=== PATIENT | male | born 1965 | race Caucasian/White ===

== ENCOUNTER 2023-04-16 12:54 | Emergency (ER) | payer OTHER, SELFPAY ==
[2023-04-16] VITALS (23 sets, daily range): BP systolic 95–133; BP diastolic 58–78; PULSE 64–82; RESP 11–18; TEMP 36.4; O2SAT 98–100; BMI 36.6
--- NOTE | 2023-04-16 13:23 | US_ITS ---
The [address] [address] Patient Name: MARYBETH PIMENTEL MRN: [id number] date: 1965 Sex: M Assigned Patient Location: ED.MAIN Current Patient Location: ER Accession/Order Number: [id number] Exam Date: 04/16/2023 13:25 Report Date: 04/16/2023 14:32 At the request of: HANS DE OLIVEIRA Procedure: US abdomen limited EXAMINATION: US abdomen limited HISTORY: ascites COMPARISON: No relevant comparison available. TECHNIQUE: Transabdominal evaluation of the right upper quadrant. FINDINGS: Large amount of free fluid within all 4 quadrants of the abdomen, the deepest is right upper quadrant, 14.7 cm. US/US abdomen limited IMPRESSION: 1. Marked abdominal ascites. Electronically authenticated by: RAJI IRWIN Date: 04/16/2023 14:32
[2023-04-16 13:24] LABS: Basophils Percent Auto 0.3 % (0.2-2.0); Eosinophils Absolute Auto 0.2 10^3/uL (0.0-0.7); Eosinophils Percent Auto 1.8 % (0.9-7.0); Hematocrit 36.1 % (42.0-54.0); Hemoglobin 11.6 g/dL (14.0-18.0); Immature Granulocytes Abs Auto 0.01 10^3/uL (0.00-0.03); Immature Granulocytes Pct Auto 0.1 % (0.0-0.5); Lymphocytes Absolute Auto 2.4 10^3/uL (1.2-3.8); Lymphocytes Percent Auto 27.2 % (20.5-60.0); Mean Corpuscular HGB Conc 32.1 g/dL (29.9-35.2); Mean Corpuscular Hemoglobin 32.5 pg (25.9-34.0); Mean Corpuscular Volume 101.1 fL (80.0-94.0); Mean Platelet Volume 9.8 fL (9.5-13.5); Monocytes Absolute Auto 0.7 10^3/uL (0.3-0.8); Monocytes Percent Auto 7.8 % (1.7-12.0); Neutrophils Absolute Auto 5.5 10^3/uL (1.4-6.5); Neutrophils Percent Auto 62.8 % (43.0-75.0); Platelet Count 246 10^3/uL (150-450); Red Blood Count 3.57 10^6/uL (4.70-6.10); Red Cell Distribution Width 14.6 % (11.0-15.0); White Blood Count 8.8 10^3/uL (4.0-11.0)
[2023-04-16 13:38] LABS: INR 1.01; Prothrombin Time 10.7 sec (9.0-11.6)
[2023-04-16 13:40] LABS: Alanine Aminotransferase 24 U/L (16-63); Albumin Globulin Ratio 0.8; Albumin Level 2.8 g/dL (3.4-5.0); Alkaline Phosphatase 138 U/L (46-116); Anion Gap 13.2; Aspartate Amino Transferase 44 U/L (15-37); BUN Creatinine Ratio 15.9; Bilirubin Total 0.5 mg/dL (0.2-1.0); Calcium 9.1 mg/dL (8.5-10.1); Carbon Dioxide 26.1 mmol/L (21.0-32.0); Chloride 106 mmol/L (98-107); Estimated GFR (African America 40 (>=60); Estimated GFR (Non-African Ame 33 (>=60); Globulin 3.3 g/dL; Glucose 70 mg/dL (74-106); Lactate/Lactic Acid 2.1 mmol/L (0.4-2.0); Potassium 4.3 mmol/L (3.5-5.1); Sodium 141 mmol/L (136-145); Total Protein 6.1 g/dL (6.4-8.2); Troponin I High Sensitivity 5.4 pg/mL (4.0-76.1)
--- NOTE | 2023-04-16 13:51 | ECG_ITS ---
The [facility] Test Date: 2023-04-16 Pat Name: MARYBETH PIMENTEL Department: Room: - Gender: Male Dra[employer]ating [employer]ating: : 1965 Requested By: Order Number: [id number] Reading MD: FLOR HITCHCOCK Measurements Intervals [place] Rate: 68 P: 7 W[place]: 164 QRS: 30 QRSD: 90 T: 31 QT: 376 QTc: 393 Interpretive Statements 1100 Sinus rhythm with PVC 8100 Low QRS voltage 9150 abnormal ECG No previous ECG available for comparison Electronically Signed On 04-18-2023 10:50:42 EST by FLOR HITCHCOCK
--- NOTE | 2023-04-16 14:33 | ED.GENADUL1 ---
Documented by User: Kat Leeanne 04/16/23 17:24 HPI - General Adult General Chief complaint: Abdominal Pain Stated complaint: ABDOMINAL PAIN Time Seen by Provider: 04/16/23 13:03 Source: patient Mode of arrival: walk-in Limitations: no limitations History of Present Illness HPI narrative: 57-year-old male presents to emergency room with a chief complaint of abdominal distention. Patient states he has a history of alcoholic cirrhosis with paracentesis. He was set up to have paracentesis performed two days ago and decided to sign out against medical advice. Patient presents here today looking have paracentesis performed. He states his normal physician is out of town. He sees a physician in [place]. He denies any pain. States he is a 20 pound weight gain. Normally pt ordered to be drained when he is 10 pounds overweight. Related Data Allergies Allergy/AdvReac Type Severity Reaction Status Date / Time No Known Drug Allergies Allergy Verified 04/16/23 16:23 Review of Systems ROS Narrative All Systems are negative except as noted/marked.All systems reviewed and otherwise negative PFSH PFSH Medical History (Updated 04/16/23 @ 16:23 by Mel Randall) Neuropathy ?G62.9 - Polyneuropathy, unspecified (ICD-10) HTN (hypertension) ?I10 - Essential (primary) hypertension (ICD-10) Cirrhosis ?K74.60 - Unspecified cirrhosis of liver (ICD-10) Surgical History (Updated 04/16/23 @ 16:23 by Mel Randall) H/O cataract removal with insertion of prosthetic lens ?Z98.49 - Cataract extraction status, unspecified eye (ICD-10) ?Z96.1 - Presence of intraocular lens (ICD-10) FHx: bariatric surgery ?Z84.89 - Family history of other specified conditions (ICD-10) Social History Smoking status: Current every day smoker Exam Narrative Exam Narrative: Nurses note and vital signs reviewed and patient is not hypoxic. General: The patient appears well and in no apparent distress. Patient is resting comfortably on cart. Skin: Warm, dry, no pallor noted. There is no rash noted. Head: Normocephalic, atraumatic Eye: Normal conjunctiva, no drainage, EOMI. PERRL Ears, Nose, Mouth, and Throat: oral mucosa is moist. Nares patent. Mouth without vesicles. Ear canals patent. Tm's without Erythema Cardiovascular: Regular Rate and Rhythm Respiratory: Patient is in no distress, no accessory muscle use, lungs are clear to auscultation, no wheezing, rales or rhonchi Back: non-tender, no CVA tenderness bilaterally to percussion. GI: Abdominal distention, no tenderness to palpation, no masses appreciated. No rebound, guarding, or rigidity noted. Neurological: A&O x4, normal speech Psychiatric: Cooperative Constitutional Vital Signs, click to edit/add: Last Vital Signs Temp 97.6 F 04/16/23 13:01 Pulse 64 04/16/23 16:37 Resp 18 04/16/23 16:37 BP 95/58 04/16/23 16:37 Pulse Ox 100 04/16/23 16:40 O2 Del Method Room Air 04/16/23 14:35 Course Vital Signs Vital signs: Vital Signs Temperature 97.6 F 04/16/23 13:01 Pulse Rate 82 04/16/23 13:01 Respiratory Rate 18 04/16/23 13:01 Blood Pressure 133/75 04/16/23 13:01 Pulse Oximetry 100 04/16/23 13:01 Oxygen Delivery Method Room Air 04/16/23 13:01 Temperature 97.6 F 04/16/23 13:01 Pulse Rate 64 04/16/23 16:37 Respiratory Rate 18 04/16/23 16:37 Blood Pressure 95/58 04/16/23 16:37 Pulse Oximetry 100 04/16/23 16:40 Oxygen Delivery Method Room Air 04/16/23 14:35 Medical Decision Making MDM Narrative Medical decision making narrative: 1500 Dr. Obregon note. I spoke to the patient several times, spoke to radiology staff and ultrasound staff. I also spoke to Dr. Erik Mckeon, Emergency Room physician to take care of this patient on Wednesday. I was involved in this patient's care on Wednesday as well, I was assisting Dr. Mckeon on potentially transferring this patient from [facility] to [place], helping with admission, helping perform paracentesis before holiday. I spoke to Dr. Jovan Roca radiologist twice about this patient as well on Wednesday. Patient left [facility] AGAINST MEDICAL ADVICE when he is reccommended to be admitted to the hospital for NILESH, hyperkalemia, and paracentesis. Patient came in to the [facility] today wanting a paracentesis. Patient was told left [facility] on Wednesday that somebody from [place] to call him Wednesday evening or morning. Emesis was not obtained until yesterday morning. The phone number that was provided was called by Cuca from radiology staff and it was not the correct number. Patient never received a phone call. Patient then came to [place] [facility] wanting to have a paracentesis. After multiple phone calls, multiple discussions with radiology staff, and Kat AMES, Dr. Mckeon, and the patient, we are able to repeat labwork can perform paracentesis today. Patient is aware that he should not a left the hospital AGAINST MEDICAL ADVICE on Wednesday. Patient is aware that we have Spent a considerable 20-30 min conservative amount of time trying to help him today with multiple different avenues at the hospital. Dr Obregon has spoken to Courtney RN From Dr. Orozco office at [facility] as well. She is aware of patient's visit to [place] [facility] today. She stated last time patient had a paracentesis they did a cell count and differential. We have a office number and fax number with the results can be sent to for performing paracentesis today. Office number is [phone] Patient return from radiology department approximately 11 L fluid was removed from his abdomen. Patient feels well at this time. Patient was given IV albumin here in the emergency room. Patient has had paracentesis 6-7 times per his history. Patient will follow-up with his physician dr Orozco In [place]. patient's vital signs are stable here in emergency room. He does feel much better post drainage of the fluid. Patient stable to be discharged home. Patient had an elevated potassium at [facility] several days ago potassium was normal here in the emergency room. he is stable be discharged home. I, Dr Obregon, have reviewed the above progress note and course of action in the ER; agree with the above. I have personally seen and evaluated this patient, gone over history and physical, and discussed disposition and treatment plan with the patient. Critical care time 45 minutes exclusive from separate billable procedures that were performed. The following was considered in the determination of critical care but not limited to the level of medical decision making, intensive cardiac and/or respiratory monitoring, frequent vital sign monitoring, evaluation of laboratory studies, evaluation of radiographic studies, oxygen monitoring, and constant monitoring and speaking to family at bedside Medical Records Medical records reviewed: Yes I reviewed the patient's medical records Lab Data Lab results reviewed: Yes I reviewed the patient's lab results Labs: Lab Results 04/16/23 04/16/23 Range/Units 13:12 15:05 WBC 8.8 (4.0-11.0) 10^3/uL RBC 3.57 L (4.70-6.10) 10^6/uL Hgb 11.6 L (14.0-18.0) g/dL Hct 36.1 L (42.0-54.0) % MCV 101.1 H (80.0-94.0) fL MCH 32.5 (25.9-34.0) pg MCHC 32.1 (29.9-35.2) g/dL RDW 14.6 (11.0-15.0) % Plt Count 246 (150-450) 10^3/uL MPV 9.8 (9.5-13.5) fL Neut % (Auto) 62.8 (43.0-75.0) % Lymph % (Auto) 27.2 (20.5-60.0) % Will % (Auto) 7.8 (1.7-12.0) % Eos % (Auto) 1.8 (0.9-7.0) % Baso % (Auto) 0.3 (0.2-2.0) % Neut # (Auto) 5.5 (1.4-6.5) 10^3/uL Lymph # (Auto) 2.4 (1.2-3.8) 10^3/uL Will # (Auto) 0.7 (0.3-0.8) 10^3/uL Eos # (Auto) 0.2 (0.0-0.7) 10^3/uL Baso # (Auto) 0.0 (0.0-0.1) 10^3/uL Abs Immat Gran (auto) 0.01 (0.00-0.03) 10^3/uL Imm/Tot Granulo (auto) 0.1 (0.0-0.5) % PT 10.7 (9.0-11.6) sec INR 1.01 APTT 26.0 (22.3-36.2) sec Sodium 141 (136-145) mmol/L Potassium 4.3 (3.5-5.1) mmol/L Chloride 106 (98-107) mmol/L Carbon Dioxide 26.1 (21.0-32.0) mmol/L Anion Gap 13.2 BUN 33.0 H (7.0-18.0) mg/dL Creatinine 2.07 H (0.70-1.30) mg/dL Est GFR ( Amer) 40 L (>=60) Est GFR (Non-Af Amer) 33 L (>=60) BUN/Creatinine Ratio 15.9 Glucose 70 L (74-106) mg/dL Lactate 2.1 H (0.4-2.0) mmol/L Calcium 9.1 (8.5-10.1) mg/dL Total Bilirubin 0.5 (0.2-1.0) mg/dL AST 44 H (15-37) U/L ALT 24 (16-63) U/L Alkaline Phosphatase 138 H (46-116) U/L Troponin I High Sens 5.4 (4.0-76.1) pg/mL Total Protein 6.1 L (6.4-8.2) g/dL Albumin 2.8 L (3.4-5.0) g/dL Globulin 3.3 g/dL Albumin/Globulin Ratio 0.8 Lipase 85.0 H (16.0-77.0) U/L Fluid Color Yellow Fluid Clarity Clear Fluid WBC 425 cubic mm Fluid RBC 380 cubic mm Fluid Neutrophils 21 % Fluid Lymphocytes 68 % Fluid Monocytes 11 % Imaging Data us: Radiologist's impression: [place] [address] Ultrasound Report Signed Patient: MARYBETH PIMENTEL MR#: [id number] : 1965 Acct:[id number] Age/Sex: 57 / M ADM Date: 04/16/23 Loc: ER Attending Dr: Ordering Physician: Kat De Oliveira Date of Service: 04/16/23 Procedure(s): US paracentesis abd w/image Accession Number(s): [id number] cc: Kat De Oliveira; Physician,Non-Staff M.D.~ The [address] [address] Patient Name: MARYBETH PIMENTEL MRN: [id number] date: 1965 Sex: M Assigned Patient Location: ED.MAIN Current Patient Location: ER Accession/Order Number: [id number] Exam Date: 04/16/2023 15:00 Report Date: 04/16/2023 16:14 At the request of: KAT DE OLIVEIRA Procedure: US paracentesis abd w/image EXAMINATION: US paracentesis abd w/image HISTORY: therapeutic drain COMPARISON: No relevant comparison available. DESCRIPTION: Informed consent was obtained. The patient was prepped and draped in standard sterile fashion. Ultrasound-guided paracentesis was performed in the usual sterile manner using 1% Xylocaine. FINDINGS: SITE: Left lower quadrant NEEDLE: Paracentesis 8 Fr. catheter over 18 gauge needle MEDICATION: 1% buffered Xylocaine for local anesthesia FLUID DESCRIPTION: Lucent, yellowish fluid FLUID VOLUME: 11 L COMPLICATIONS: None LABORATORY: Pending OTHER: Negative. US/US paracentesis abd w/image IMPRESSION: 1. Successful paracentesis with removal of 11 L of lucent, yellowish fluid. Electronically authenticated by: RAJI IRWIN Date: 04/16/2023 16:14 ECG Data Interpretation: 1429 , normal sinus rhythm with a rate of 68 bpm, [place] interval 164 ms, QRS duration 90 ms, no STEMI, artifact Discharge Plan Discharge Chief Complaint: Abdominal Pain Clinical Impression: Ascites Patient Disposition: Home, Self-Care Time of Disposition Decision: 17:20 Condition: Fair Instructions: Ascites (ED), Paracentesis (DC) Stand Alone Forms: Portal Instructions Referrals: Physician,Non-Staff, [Primary Care Provider] - 1 week Discharge Date/Time: 04/16/23 17:26 Documented by User: Chalino Obregon MD 04/16/23 20:11 HPI - General Adult General Chief complaint: Abdominal Pain Stated complaint: ABDOMINAL PAIN Time Seen by Provider: 04/16/23 13:03 Related Data Allergies Allergy/AdvReac Type Severity Reaction Status Date / Time No Known Drug Allergies Allergy Verified 04/16/23 16:23 PFSH PFSH Medical History (Updated 04/16/23 @ 16:23 by Mel Randall) Neuropathy ?G62.9 - Polyneuropathy, unspecified (ICD-10) HTN (hypertension) ?I10 - Essential (primary) hypertension (ICD-10) Cirrhosis ?K74.60 - Unspecified cirrhosis of liver (ICD-10) Surgical History (Updated 04/16/23 @ 16:23 by Mel Randall) H/O cataract removal with insertion of prosthetic lens ?Z98.49 - Cataract extraction status, unspecified eye (ICD-10) ?Z96.1 - Presence of intraocular lens (ICD-10) FHx: bariatric surgery ?Z84.89 - Family history of other specified conditions (ICD-10) Social History Smoking status: Current every day smoker Exam Constitutional Vital Signs, click to edit/add: Last Vital Signs Temp 97.6 F 04/16/23 13:01 Pulse 64 04/16/23 16:37 Resp 18 04/16/23 16:37 BP 95/58 04/16/23 16:37 Pulse Ox 100 04/16/23 16:40 O2 Del Method Room Air 04/16/23 14:35 Course Vital Signs Vital signs: Vital Signs Temperature 97.6 F 04/16/23 13:01 Pulse Rate 82 04/16/23 13:01 Respiratory Rate 18 04/16/23 13:01 Blood Pressure 133/75 04/16/23 13:01 Pulse Oximetry 100 04/16/23 13:01 Oxygen Delivery Method Room Air 04/16/23 13:01 Temperature 97.6 F 04/16/23 13:01 Pulse Rate 64 04/16/23 16:37 Respiratory Rate 18 04/16/23 16:37 Blood Pressure 95/58 04/16/23 16:37 Pulse Oximetry 100 04/16/23 16:40 Oxygen Delivery Method Room Air 04/16/23 14:35 Medical Decision Making MDM Narrative Medical decision making narrative: 1500 Dr. Obregon note. I spoke to the patient several times, spoke to radiology staff and ultrasound staff. I also spoke to Dr. Erik Mckeon, Emergency Room physician to take care of this patient on Wednesday. I was involved in this patient's care on Wednesday as well, I was assisting Dr. Mckeon on potentially transferring this patient from [facility] to [place], helping with admission, helping perform paracentesis before . I spoke to Dr. Jovan Roca radiologist twice about this patient as well on Wednesday. Patient left [facility] AGAINST MEDICAL ADVICE when he is reccommended to be admitted to the hospital for NILESH, hyperkalemia, and paracentesis. Patient came in to the [facility] today wanting a paracentesis. Patient was told left [facility] on Wednesday that somebody from [place] to call him Wednesday evening or morning. Emesis was not obtained until yester morning. The phone number that was provided was called by Cuca from radiology staff and it was not the correct number. Patient never received a phone call. Patient then came to [place] [facility] wanting to have a paracentesis. After multiple phone calls, multiple discussions with radiology staff, and Kat AMES, Dr. Mckeno, and the patient, we are able to repeat labwork can perform paracentesis today. Patient is aware that he should not a left the hospital AGAINST MEDICAL ADVICE on Wednesday. Patient is aware that we have Spent a considerable 20-30 min conservative amount of time trying to help him today with multiple different avenues at the hospital. Dr Obregon has spoken to Courtney RN From Dr. Orozco office at [facility] as well. She is aware of patient's visit to [place] [facility] today. She stated last time patient had a paracentesis they did a cell count and differential. We have a office number and fax number with the results can be sent to for performing paracentesis today. Office number is [phone] I, Dr Obregon, have reviewed the above progress note and course of action in the ER; agree with the above. I have personally seen and evaluated this patient, gone over history and physical, and discussed disposition and treatment plan with the patient. Critical care time 45 minutes exclusive from separate billable procedures that were performed. The following was considered in the determination of critical care but not limited to the level of medical decision making, intensive cardiac and/or respiratory monitoring, frequent vital sign monitoring, evaluation of laboratory studies, evaluation of radiographic studies, oxygen monitoring, and constant monitoring and speaking to family at bedside Lab Data Labs: Lab Results 04/16/23 04/16/23 Range/Units 13:12 15:05 WBC 8.8 (4.0-11.0) 10^3/uL RBC 3.57 L (4.70-6.10) 10^6/uL Hgb 11.6 L (14.0-18.0) g/dL Hct 36.1 L (42.0-54.0) % MCV 101.1 H (80.0-94.0) fL MCH 32.5 (25.9-34.0) pg MCHC 32.1 (29.9-35.2) g/dL RDW 14.6 (11.0-15.0) % Plt Count 246 (150-450) 10^3/uL MPV 9.8 (9.5-13.5) fL Neut % (Auto) 62.8 (43.0-75.0) % Lymph % (Auto) 27.2 (20.5-60.0) % Will % (Auto) 7.8 (1.7-12.0) % Eos % (Auto) 1.8 (0.9-7.0) % Baso % (Auto) 0.3 (0.2-2.0) % Neut # (Auto) 5.5 (1.4-6.5) 10^3/uL Lymph # (Auto) 2.4 (1.2-3.8) 10^3/uL Will # (Auto) 0.7 (0.3-0.8) 10^3/uL Eos # (Auto) 0.2 (0.0-0.7) 10^3/uL Baso # (Auto) 0.0 (0.0-0.1) 10^3/uL Abs Immat Gran (auto) 0.01 (0.00-0.03) 10^3/uL Imm/Tot Granulo (auto) 0.1 (0.0-0.5) % PT 10.7 (9.0-11.6) sec INR 1.01 APTT 26.0 (22.3-36.2) sec Sodium 141 (136-145) mmol/L Potassium 4.3 (3.5-5.1) mmol/L Chloride 106 (98-107) mmol/L Carbon Dioxide 26.1 (21.0-32.0) mmol/L Anion Gap 13.2 BUN 33.0 H (7.0-18.0) mg/dL Creatinine 2.07 H (0.70-1.30) mg/dL Est GFR ( Amer) 40 L (>=60) Est GFR (Non-Af Amer) 33 L (>=60) BUN/Creatinine Ratio 15.9 Glucose 70 L (74-106) mg/dL Lactate 2.1 H (0.4-2.0) mmol/L Calcium 9.1 (8.5-10.1) mg/dL Total Bilirubin 0.5 (0.2-1.0) mg/dL AST 44 H (15-37) U/L ALT 24 (16-63) U/L Alkaline Phosphatase 138 H (46-116) U/L Troponin I High Sens 5.4 (4.0-76.1) pg/mL Total Protein 6.1 L (6.4-8.2) g/dL Albumin 2.8 L (3.4-5.0) g/dL Globulin 3.3 g/dL Albumin/Globulin Ratio 0.8 Lipase 85.0 H (16.0-77.0) U/L Fluid Color Yellow Fluid Clarity Clear Fluid WBC 425 cubic mm Fluid RBC 380 cubic mm Fluid Neutrophils 21 % Fluid Lymphocytes 68 % Fluid Monocytes 11 % Discharge Plan Discharge Chief Complaint: Abdominal Pain Clinical Impression: Ascites Patient Disposition: Home, Self-Care Time of Disposition Decision: 17:20 Condition: Fair Instructions: Ascites (ED), Paracentesis (DC) Stand Alone Forms: Portal Instructions Referrals: Physician,Non-Staff, MD [Primary Care Provider] - 1 week Discharge Date/Time: 04/16/23 17:26
--- NOTE | 2023-04-16 15:00 | US_ITS ---
The [address] [address] Patient Name: MARYBETH PIMENTEL MRN: [id number] date: 1965 Sex: M Assigned Patient Location: ED.MAIN Current Patient Location: ER Accession/Order Number: [id number] Exam Date: 04/16/2023 15:00 Report Date: 04/16/2023 16:14 At the request of: HANS DE LOIVEIRA Procedure: US paracentesis abd w/image EXAMINATION: US paracentesis abd w/image HISTORY: therapeutic drain COMPARISON: No relevant comparison available. DESCRIPTION: Informed consent was obtained. The patient was prepped and draped in standard sterile fashion. Ultrasound-guided paracentesis was performed in the usual sterile manner using 1% Xylocaine. FINDINGS: SITE: Left lower quadrant NEEDLE: Paracentesis 8 Fr. catheter over 18 gauge needle MEDICATION: 1% buffered Xylocaine for local anesthesia FLUID DESCRIPTION: Lucent, yellowish fluid FLUID VOLUME: 11 L COMPLICATIONS: None LABORATORY: Pending OTHER: Negative. US/US paracentesis abd w/image IMPRESSION: 1. Successful paracentesis with removal of 11 L of lucent, yellowish fluid. Electronically authenticated by: RAJI IRWIN Date: 04/16/2023 16:14
[2023-04-16] MEDS: ALBUMIN HUMAN 25 GM/100 ML PREMIX IV (16:22)
[2023-04-16 16:27] LABS: Clarity Body Fluid CLEAR; Color Body Fluid YELLOW; Lymphocytes Body Fluid 68 %; Monocytes Body Fluid 11 %; Neutrophils Body Fluid 21 %; RBC Body Fluid 380 cubic mm; Red Blood Cell BF Side 1 360; Red Blood Cell BF Side 2 324; WBC Body Fluid 425 cubic mm; White Blood Cell BF Side 1 405; White Blood Cell BF Side 2 361
--- NOTE | 2023-04-16 16:41 | PC.NURSE ---
[address] and draining clear yellow fluid. 1600 total of 11 liters removed and pt tolerated well.
--- NOTE | 2023-04-16 16:53 | PC.NURSE ---
1500 Dr Anthony gave 10 ml 1% Lidocaine buffered for local.
== END 2023-04-16 17:26 | disposition home or self-care (01) ==
PROVIDERS: Physician Assistant; Radiology Diagnostic Radiology; Emergency Provider Emergency Medicine
DX: K70.31 Alcoholic cirrhosis of liver with ascites (principal); G62.9 Polyneuropathy, unspecified; I10 Essential (primary) hypertension; F17.200 Nicotine dependence, unspecified, uncomplicated
CPT/HCPCS: 36415; 49083; 76705; 80053; 83605; 83690; 84484; 85025; 85610; 85730; 89051; 93005; 96365; 99285; P9047